=== PATIENT | female | born 1990 | race Caucasian/White ===

== ENCOUNTER 2021-09-29 10:31 | Emergency (ER) | payer OTHER ==
[~2021-09-29] VITALS: Ht 162.6 cm; Wt 71.7 kg
[2021-09-29 10:38] VITALS: BP 129/74
--- NOTE | 2021-09-29 11:03 | NUR ---
blood drawn through iv site, 20g right ac. 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
[2021-09-29 11:06] LABS: BILIRUBIN,URINE NEGATIVE (NEGATIVE); BLOOD, URINE 1+ (NEGATIVE); COLOR,URINE YELLOW (YELLOW); LEUKOCYTE ESTERASE ,URINE NEGATIVE (NEGATIVE); NITRITE, URINE NEGATIVE (NEGATIVE); UGLUCOSE NEGATIVE (NEGATIVE)
[2021-09-29 11:09] LABS: BASOPHILS # (AUTO) 0.1 K/uL (0.00-0.22); BASOPHILS % (AUTO) 0.8 % (0.0-2.0); EOSINOPHILS % (AUTO) 0.2 % (0.0-4.0); HEMATOCRIT 42.9 % (36-48); HEMOGLOBIN 14.7 g/dL (12.0-16.0); LYMPHOCYTES # (AUTO) 1.2 K/uL (2.5-16.5); LYMPHOCYTES % (AUTO) 14.9 % (20.5-51.1); MEAN CORPUSCULAR HEMOGLOBIN 30 pg (27-31); MEAN CORPUSCULAR HGB CONC 34 g/dL (33-37); MEAN CORPUSCULAR VOLUME 87.6 fL (80-94); MONOCYTES # (AUTO) 0.3 K/uL (0.8-1.0); MONOCYTES % (AUTO) 4.4 % (1.7-9.3); NEUTROPHILS # (AUTO) 6.2 K/uL (1.8-7.7); NEUTROPHILS % (AUTO) 79.7 % (42.2-75.2); PLATELET COUNT (AUTO) 231 K/uL (140-450); RED CELL DISTRIBUTION WIDTH 13.5 % (11.6-13.7); WHITE BLOOD COUNT (AUTO) 7.8 K/uL (4.8-10.8)
[2021-09-29 11:10] LABS: APPEARANCE,URINE SLIGHTLY HAZY (CLEAR)
--- NOTE | 2021-09-29 11:10 | NUR ---
pt taken to ct via wheelchair at this time
--- NOTE | 2021-09-29 11:19 | NUR ---
31 YEAR OLD FEMALE BIB SELF C/O RLQ PAIN SINCE WEDNESDAY. STATES PAIN /10 WITH THROBING QUALITY THAT WORSENS WHILE LAYING DOWN. REPORTS CHANGE IN APPETITE AND LBM 3 DAYS AGO. LMP 09/25/21. DENIES N/V/D. DENIES TAKING PAIN MEDICATION. PMHX: DENIES ALLERGIES: NKA
[2021-09-29 11:20] LABS: CALCIUM OXALATE CRYSTALS,UR None Seen /HPF (None Seen); COARSE GRANULAR CASTS,URINE None Seen /LPF (None Seen); FINE GRANULAR CASTS,URINE None Seen /LPF (None Seen); HYALINE CASTS, URINE None Seen /LPF (None Seen); OTHER CASTS, URINE None Seen /LPF (None Seen); OTHER CRYSTALS,URINE None Seen /HPF (None Seen); RED BLOOD CELL CASTS,URINE None Seen /LPF (None Seen); TRICHOMONAS,URINE None Seen /HPF (None Seen); TRIPLE PHOSPHATE CRYSTAL,UR None Seen /HPF (None Seen); URIC ACID CRYSTALS,URINE None Seen /HPF (None Seen); URINE AMORPHOUS URATE None Seen /HPF (None Seen); WAXY CASTS,URINE None Seen /LPF (None Seen); WBC,URINE NONE SEEN /HPF (0-5); YEAST,URINE None Seen /HPF (None Seen)
--- NOTE | 2021-09-29 11:20 | NUR ---
PT WAS GIVEN A CUP OF WATER PER REQUEST.
[2021-09-29 11:27] LABS: ALBUMIN 4.4 g/dL (3.4-5.0); CARBON DIOXIDE 26.8 mmol/L (21-32); CREATININE 0.9 mg/dL (0.6-1.3); POTASSIUM 3.8 mmol/L (3.5-5.1); TOTAL BILIRUBIN 0.5 mg/dL (0.0-1.0)
[2021-09-29] MEDS ORDERED: KETOROLAC 30 MG/ML VIAL IVP ONE (12:00)
[2021-09-29] MEDS ORDERED: MIRABULK PO (12:05)
[2021-09-29] MEDS ORDERED: IBUP-2213 PO (12:05)
--- NOTE | 2021-09-29 12:31 | NUR ---
Patient discharged with v/s stable. Written and verbal after care instructions given and explained. Patient alert, oriented and verbalized understanding of instructions. Ambulatory with steady gait. All questions addressed prior to discharge. ID band removed. Patient advised to follow up with PMD. Rx of IBUPROFEN AND MIRALAX given. Patient educated on indication of medication including possible reaction and side effects. Opportunity to ask questions provided and answered. Work note given.
[2021-09-29 12:34] VITALS: BP 129/74
== END 2021-09-29 12:31 | disposition home or self-care (01) ==
LOC: MED 10:31
DX: K59.00 Constipation, unspecified (principal)
CPT/HCPCS: 36415; 74176; 80053; 81001; 81025; 83690; 85025; 99284; J1885

== ENCOUNTER 2022-06-01 14:36 | Emergency (ER) | payer OTHER ==
[~2022-06-01] VITALS: Ht 162.6 cm; Wt 78.9 kg
[~2022-06-01 14:36] MED LIST: IBUP-2213 PO; MIRABULK PO
[2022-06-01 16:09] VITALS: BP 124/92
[2022-06-01] MEDS ORDERED: BACITRACIN OINT 500 UNITS/GM PKT TP ONE (16:15)
[2022-06-01] MEDS ORDERED: BACI1PAC6 TP ×3 (16:18→18:32)
[2022-06-01] MEDS ORDERED: IBUP-1842 PO ×3 (16:18→18:32)
--- NOTE | 2022-06-01 16:28 | NUR ---
L ANTERIOR WOUND IRRIGATED AND DRESSED WITH NON ADHERENT X 1.
--- NOTE | 2022-06-01 17:29 | NUR ---
Patient discharged with v/s stable. Written and verbal after care instructions ABOUT BURN CARE given and explained. Patient alert, oriented and verbalized understanding of instructions. Ambulatory with steady gait. All questions addressed prior to discharge. ID band removed. Patient advised to follow up with PMD. Rx of BACITRACIN AND MOTRIN given. Patient educated on indication of medication including possible reaction and side effects. Opportunity to ask questions provided and answered.
== END 2022-06-01 17:29 | disposition home or self-care (01) ==
LOC: MED 14:36
DX: T23.102A Burn of first degree of left hand, unspecified site, initial encounter (principal); T31.0 Burns involving less than 10% of body surface
CPT/HCPCS: 16000; 90471; 90715; 99283